=== PATIENT | male | born 1950 | race Caucasian/White ===

== ENCOUNTER 2016-09-27 08:16 | Outpatient (CLI) | payer MEDICARE, BC | END 2016-09-27 08:17 | disposition home or self-care (01) | LOC: BURLAB 08:16 | PROVIDERS: ATTEND Urology | DX: C61 Malignant neoplasm of prostate (principal) | CPT/HCPCS: 36415; 84153 ==

== ENCOUNTER 2017-01-10 12:39 | Outpatient (CLI) | payer MEDICARE, BC | END 2017-01-10 12:40 | disposition home or self-care (01) | LOC: BURLAB 12:39 | PROVIDERS: ATTEND Urology | DX: C61 Malignant neoplasm of prostate (principal) | CPT/HCPCS: 36415; 84153 ==

== ENCOUNTER 2017-04-12 08:37 | Outpatient (CLI) | payer MEDICARE, BC | END 2017-04-12 08:38 | disposition home or self-care (01) | LOC: BURLAB 08:37 | PROVIDERS: ATTEND Urology | DX: C61 Malignant neoplasm of prostate (principal) | CPT/HCPCS: 36415; 84153 ==

== ENCOUNTER 2018-04-11 08:02 | Outpatient (CLI) | payer MEDICARE, BC ==
--- NOTE | 2018-04-11 20:01 | ULT ---
RIGHT LOWER EXTREMITY VENOUS ULTRASOUND: 04/11/18 Color duplex doppler ultrasonography of the deep veins of the right lower extremity was performed. Al l deep veins were freely compressible from groin to ankle. No echogenic clot was seen and there was n ormal doppler responses to augmentation maneuvers. At the site of trauma in the calf, one sees a 10 x 4 cm hypolucent area that is probably a large xin ernst. No other abnormalities were seen. IMPRESSION: 1. No evidence of DVT. 2. Large calf hematoma. POS: HOME
== END 2018-04-11 08:03 | disposition home or self-care (01) ==
LOC: BURULT 08:02
PROVIDERS: ATTEND Family Medicine
DX: S89.91XA Unspecified injury of right lower leg, initial encounter (principal); M79.604 Pain in right leg; S80.11XA Contusion of right lower leg, initial encounter

== ENCOUNTER 2021-02-19 14:26 | Outpatient (CLI) | payer MEDICARE | END 2021-02-19 14:27 | disposition home or self-care (01) | LOC: BURRAD 14:26 | PROVIDERS: ATTEND Family Medicine | DX: S90.211A Contusion of right great toe with damage to nail, initial encounter (principal); S92.421A Displaced fracture of distal phalanx of right great toe, initial encounter for closed fracture ==